=== PATIENT | female | born 1980 | race Caucasian/White ===

== ENCOUNTER 2024-03-05 17:57 | Emergency (ER) | payer OTHER ==
[2024-03-05] MEDS ORDERED: Gabapentin 300 MG Cap PO ONE (18:01)
[2024-03-05] MEDS: carBAMazepine 100 MG Cap.ER PO ONE (18:14)
[2024-03-05] MEDS: Take Home: Cyclobenzaprine 10 MG Tab, 4 Tab Pack PO ONE (18:14)
== END 2024-03-05 18:24 | disposition home or self-care (01) ==
LOC: CC.ED 17:57
DX: G50.0 Trigeminal neuralgia (principal)
CPT/HCPCS: 99283; A9270; 99284